=== PATIENT | female | born 1990 ===

== ENCOUNTER 2016-07-20 12:59 | Emergency (ER) | payer MEDICAID ==
[2016-07-20 12:59] VITALS: BMI 25.4
[2016-07-20 13:22] VITALS: BP 114/64; PULSE 82; RESP 18; TEMP 98; O2SAT 99
--- NOTE | 2016-07-20 14:26 | ED PDOC ---
Lower Extremity Pain/Injury Time Seen by Provider: 07/20/16 13:45 Chief Complaint (Nursing): Lower Extremity Problem/Injury Chief Complaint (Provider): R foot pain History Per: Patient Additional Complaint(s): pt c/o R foot pain since injury at gym last night. states she was stepping off stair master but didin't realize it was still going move. states stair scraped over and up R foot and ankle. no numbness, weakness distally or other injury. Past Medical History Reviewed: Historical Data, Nursing Documentation, Vital Signs Vital Signs: Last Vital Signs Temp 98.0 F 07/20/16 13:19 Pulse 82 07/20/16 13:19 Resp 18 07/20/16 13:19 BP 114/64 07/20/16 13:19 Pulse Ox 99 07/20/16 13:19 - Medical History PMH: No Chronic Diseases - Surgical History Surgical History: Appendectomy (1992) - Family History Family History: States: Unknown Family Hx - Social History Current smoker - smoking cessation education provided: No Alcohol: None Drugs: Denies - Home Medications Home Medications: Ambulatory Orders Medication Instructions Recorded Albuterol HFA [Ventolin HFA 90 2 puff IH Q4 PRN #1 unit 01/27/16 mcg/actuation (8 g)] Guaifenesin/Pseudoephedrne HCl 1 each PO BID #10 tab.er.12h 01/27/16 [Guaifenesin-Pse ER 600-60 mg] Promethazine HCl/Codeine 5 ml PO BID #50 ml 01/27/16 [Prometh-Codein 6.25-10 mg/5 ml] Amoxicillin/Clavulanate [Augmentin 1 tab PO BID #14 tab 02/06/16 875 MG-125 MG] Ciprofloxacin/Hydrocortisone 3 drop TOP BID #10 ml 02/06/16 [Cipro Hc Otic Suspension] Promethazine HCl/Codeine 10 ml PO Q6 PRN #6 oz 02/06/16 [Prometh-Codein 6.25-10 mg/5 ml] Ibuprofen [Motrin] 600 mg PO Q8 #20 tab 07/20/16 - Allergies Allergies/Adverse Reactions: Allergies Allergy/AdvReac Type Severity Reaction Status Date / Time No Known Allergies Allergy Verified 07/20/16 13:19 Review of Systems ROS Statement: Except As Marked, All Systems Reviewed And Found Negative Musculoskeletal: Positive for: Foot Pain Physical Exam - Reviewed Nursing Documentation Reviewed: Yes Vital Signs Reviewed: Yes - Physical Exam Appears: Positive for: Well, Non-toxic, No Acute Distress Skin: Positive for: Normal Color, Warm, DRY Extremity: Positive for: Other (R hatch tender dorsal midfoot and anterior ankle w/ echymosis laterally. n/v intact distally. other extremities wnl. ) Neurologic/Psych: Positive for: Alert, Oriented, Gait (steady). Negative for: Motor/Sensory Deficits - ECG O2 Sat by Pulse Oximetry: 99 Medical Decision Making Medical Decision Making: R foot/ankle xrays no fx no dislocation. will anival, refer to podiatry prn. Disposition - Clinical Impression Clinical Impression: Ankle injury - Patient ED Disposition Is Patient to be Admitted: No - Disposition Referrals: Epifanio Kim MD [Staff Provider] - Disposition: Routine/Home Disposition Time: 15:10 Condition: GOOD Prescriptions: Ibuprofen [Motrin] 600 mg PO Q8 #20 tab Instructions: Foot Contusion (ED) Forms: [facility] ED School/Work Excuse
--- NOTE | 2016-07-20 15:09 | RAD ---
PROCEDURE: Right Foot Radiographs. HISTORY: injury COMPARISON: None. FINDINGS: BONES: Bone alignment and mineralization are normal. There is no acute fracture or bone destruction. JOINTS: Normal. SOFT TISSUES: Normal. OTHER FINDINGS: None. IMPRESSION: Normal examination.
--- NOTE | 2016-07-20 16:12 | RAD ---
PROCEDURE: Right Ankle Radiographs. HISTORY: Injury COMPARISON: None FINDINGS: BONES: There is no acute fracture or bone destruction. Bone alignment and mineralization are normal. JOINTS: Normal. Ankle mortise maintained. Talar dome intact SOFT TISSUES: Normal. OTHER FINDINGS: None. IMPRESSION: No acute fracture or dislocation.
== END 2016-07-20 15:29 | disposition home or self-care (01) ==
LOC: H.ER 12:59
DX: S99.911A Unspecified injury of right ankle, initial encounter (principal); W22.8XXA Striking against or struck by other objects, initial encounter; Y92.89 Other specified places as the place of occurrence of the external cause

== ENCOUNTER 2016-08-06 10:10 | Emergency (ER) | payer MEDICAID ==
[2016-08-06 10:11] VITALS: BMI 25.4
[2016-08-06 10:38] VITALS: BP 110/76; RESP 18; TEMP 97; O2SAT 97
--- NOTE | 2016-08-06 11:00 | ED PDOC ---
HPI: Chest Pain Time Seen by Provider: 08/06/16 10:32 Chief Complaint (Nursing): Chest Pain Chief Complaint (Provider): chest tightness History Per: Patient History/Exam Limitations: no limitations Onset/Duration Of Symptoms: Hrs (earlier this morning ) Quality: Tightness Additional Complaint(s): Patient is a 25 year old female, with a previous medical history of an appendicitis, who presents to the ED with complaints of a midline chest tightness which began earlier today when she first woke up. Pt states she was not initially concerned with chest tightness until additional symptom experienced. Pt symptoms include experiencing shortness of breath and lightheadedness which prompted the ED visit. Pt reports shortness of breath has since resolved spontaneously. Pt states she currently experiences the chest tightness secondary to deep inspiration. Pt denies any calf pain, recent travel or control use. Of note, pt reports to being on depo shot but discontinued for the past year. PMD: [place], [place] Past Medical History Reviewed: Historical Data, Nursing Documentation, Vital Signs Vital Signs: Last Vital Signs Temp 97 F L 08/06/16 10:33 Pulse 77 08/06/16 12:40 Resp 18 08/06/16 10:33 BP 110/76 08/06/16 10:33 Pulse Ox 97 08/06/16 12:40 - Medical History PMH: No Chronic Diseases - Surgical History Surgical History: Appendectomy (1992) - Family History Family History: States: Diabetes, Hypertension, Other (hypercholesterolemia) - Social History Current smoker - smoking cessation education provided: No Alcohol: None Drugs: Denies - Home Medications Home Medications: Ambulatory Orders Medication Instructions Recorded Albuterol HFA [Ventolin HFA 90 2 puff IH Q4 PRN #1 unit 01/27/16 mcg/actuation (8 g)] Guaifenesin/Pseudoephedrne HCl 1 each PO BID #10 tab.er.12h 01/27/16 [Guaifenesin-Pse ER 600-60 mg] Promethazine HCl/Codeine 5 ml PO BID #50 ml 01/27/16 [Prometh-Codein 6.25-10 mg/5 ml] Amoxicillin/Clavulanate [Augmentin 1 tab PO BID #14 tab 02/06/16 875 MG-125 MG] Ciprofloxacin/Hydrocortisone 3 drop TOP BID #10 ml 02/06/16 [Cipro Hc Otic Suspension] Promethazine HCl/Codeine 10 ml PO Q6 PRN #6 oz 02/06/16 [Prometh-Codein 6.25-10 mg/5 ml] Ibuprofen [Motrin] 600 mg PO Q8 #20 tab 07/20/16 Ranitidine HCl [Zantac] 1 tab PO BID #40 tablet 08/06/16 - Allergies Allergies/Adverse Reactions: Allergies Allergy/AdvReac Type Severity Reaction Status Date / Time No Known Allergies Allergy Verified 07/20/16 13:19 Review of Systems ROS Statement: Except As Marked, All Systems Reviewed And Found Negative Cardiovascular: Positive for: Light Headedness, Other (chest tighness ) Respiratory: Positive for: Shortness of Breath (spontaneously resolved upon ED arrival ) Musculoskeletal: Negative for: Leg Pain Physical Exam - Reviewed Nursing Documentation Reviewed: Yes Vital Signs Reviewed: Yes - Physical Exam Appears: Positive for: Well, Non-toxic, No Acute Distress Head Exam: Positive for: ATRAUMATIC, NORMAL INSPECTION, NORMOCEPHALIC Skin: Positive for: Normal Color, Warm, Dry Neck: Positive for: Normal Cardiovascular/Chest: Positive for: Regular Rate, Rhythm Respiratory: Positive for: Normal Breath Sounds. Negative for: Decreased Breath Sounds, Accessory Muscle Use, Crackles, Rales, Rhonchi, Stridor, Wheezing , Respiratory Distress, Plerual Rub Pulses-Dorsalis Pedis (L): 2+ Pulses-Dorsalis Pedis (R): 2+ Back: Positive for: Normal Inspection Extremity: Positive for: Normal ROM, Capillary Refill (< 2 seconds ). Negative for: Tenderness, Pedal Edema, Calf Tenderness, Deformity, Swelling Neurologic/Psych: Positive for: Alert, Oriented - Laboratory Results Result Diagrams: 08/06/16 11:00 08/06/16 11:00 - ECG ECG Rhythm: Positive for: Sinus Rhythm. 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 PLEURA: No significant pleural effusion identified. No pneumothorax apparent. CARDIOVASCULAR: Normal. OSSEOUS STRUCTURES: No significant abnormalities. VISUALIZED UPPER ABDOMEN: Normal. OTHER FINDINGS: None. IMPRESSION: No active pulmonary disease. 12:33 PM Pt feels better. D-dimer neg. Will d/c home. Scribe Attestation: Documented by Cris Tovar, acting as a scribe for Grayson Wadsworth Jr., MD. Provider Scribe Attestation: All medical record entries made by the Scribe were at my direction and personally dictated by me. I have reviewed the chart and agree that the record accurately reflects my personal performance of the history, physical exam, medical decision making, and the department course for this patient. I have also personally directed, reviewed, and agree with the discharge instructions and disposition. Disposition - Clinical Impression Clinical Impression: Chest pain Counseled Patient/Family Regarding: Studies Performed, Diagnosis, Need For Followup, Rx Given - Disposition Referrals: FAMILY PROVIDER,DOLLY [Primary Care Provider] - [facility] [Outside] Disposition: Routine/Home Disposition Time: 12:33 Condition: IMPROVED Additional Instructions: Alcon, thank you for letting us take care of you today. Return to the ER if your symptoms worsen, or if any problems. Take the medicine listed below as prescribed. Please call our [facility] at the phone number listed below to make a follow up appointment so you can be re-evaluated. Prescriptions: Ranitidine HCl [Zantac] 1 tab PO BID #40 tablet Instructions: Chest Pain (ED) Forms: [facility] ED School/Work Excuse Print Language: CYMRAES - POA Present On Arrival: None
[2016-08-06 11:04] VITALS: PULSE 77
[2016-08-06 11:16] LABS: BASO % 0.4 % (0.0-2.0); EOS # 0.1 K/uL (0.0-0.7); EOS % 1.4 % (0.0-4.0); HEMATOCRIT 44.3 % (34.0-47.0); LYMPH # 1.6 K/uL (1.0-4.3); LYMPH % 22.8 % (20.0-40.0); MEAN CELL VOLUME 91.2 fl (81.0-99.0); MEAN CORPUSCULAR HEMOGLOBIN 31.4 pg (27.0-31.0); MEAN CORPUSCULAR HGB CONC 34.4 g/dL (33.0-37.0); MEAN PLATELET VOLUME 10.6 fl (7.2-11.7); MONO # 0.7 K/uL (0.0-0.8); MONO % 9.6 % (0.0-10.0); NEUT # 4.7 K/uL (1.8-7.0); NEUT % 65.8 % (50.0-75.0); NRBC % 0.1 % (0.0-0.0); RED CELL DISTRIBUTION WIDTH 13.5 % (11.5-14.5); WHITE BLOOD COUNT 7.1 K/uL (4.8-10.8)
[2016-08-06 11:24] LABS: ALB/GLOB RATIO 1.2 (1.0-2.1); ALKALINE PHOSPHATASE 70 U/L (38-126); ALT/SGPT 37 U/L (9-52); AST/SGOT 25 U/L (14-36); BILIRUBIN,TOTAL 0.8 mg/dl (0.2-1.3); BLOOD UREA NITROGEN 9 mg/dl (7-17); CALCIUM 8.9 mg/dL (8.4-10.2); CARBON DIOXIDE 25 mmol/L (22-30); CHLORIDE 108 mmol/L (98-107); GFR AFRICAN-AMERICAN > 60; GLUCOSE,RANDOM 89 mg/dL (65-105); POTASSIUM 3.9 MMOL/L (3.6-5.0); SODIUM 144 mmol/l (132-148); TOTAL PROTEIN 6.6 G/DL (6.3-8.2)
--- NOTE | 2016-08-06 11:43 | RAD ---
HISTORY: Chest pain and shortness of breath COMPARISON: No prior. TECHNIQUE: Chest PA and lateral FINDINGS: LUNGS: The lungs are well inflated and clear. PLEURA: No significant pleural effusion identified. No pneumothorax apparent. CARDIOVASCULAR: Normal. OSSEOUS STRUCTURES: No significant abnormalities. VISUALIZED UPPER ABDOMEN: Normal. OTHER FINDINGS: None. IMPRESSION: No active pulmonary disease.
[2016-08-06 12:01] LABS: PARTIAL THROMBOPLASTIN TIME 27.1 SECONDS (23.3-32.5)
== END 2016-08-06 12:54 | disposition home or self-care (01) ==
LOC: H.ER 10:10 → SUPCPDRO 10:10 → H.ER 12:54
DX: R07.9 Chest pain, unspecified (principal); R06.02 Shortness of breath

== ENCOUNTER 2016-09-03 12:06 | Emergency (ER) | payer MEDICAID ==
[2016-09-03 12:09] VITALS: BP 116/77; PULSE 77; RESP 18; TEMP 97.8; O2SAT 99; BMI 25.8
[2016-09-03] MEDS ORDERED: Naproxen 500 MG TAB PO ONE ×2 (12:32→12:40)
--- NOTE | 2016-09-03 12:36 | ED PDOC ---
HPI: General Adult Time Seen by Provider: 09/03/16 12:18 Chief Complaint (Nursing): ENT Problem Chief Complaint (Provider): Left ear pain History Per: Patient History/Exam Limitations: no limitations Onset/Duration Of Symptoms: Days (7 days) Current Symptoms Are (Timing): Still Present Additional Complaint(s): Alanis Rondon, a 25 year old female, presents to the ED with left ear pain. The patient states that for the past week she has had a cough, ringing in the left ear along with decreased hearing. She reports that yesterday(09/02/2016) she heard a pop in her left ear and then the ringing sound got louder then the pain increased. Patient denies dizziness, shortness of breath, chest pain, hemoptysis and fever. Past Medical History Reviewed: Historical Data, Nursing Documentation, Vital Signs Vital Signs: Last Vital Signs Temp 97.8 F 09/03/16 12:08 Pulse 77 09/03/16 12:08 Resp 18 09/03/16 12:08 BP 116/77 09/03/16 12:08 Pulse Ox 99 09/03/16 12:57 - Medical History PMH: No Chronic Diseases - Surgical History Surgical History: Appendectomy (1992) - Family History Family History: States: Unknown Family Hx, Diabetes, Hypertension - Home Medications Home Medications: Ambulatory Orders Medication Instructions Recorded Albuterol HFA [Ventolin HFA 90 2 puff IH Q4 PRN #1 unit 01/27/16 mcg/actuation (8 g)] Guaifenesin/Pseudoephedrne HCl 1 each PO BID #10 tab.er.12h 01/27/16 [Guaifenesin-Pse ER 600-60 mg] Promethazine HCl/Codeine 5 ml PO BID #50 ml 01/27/16 [Prometh-Codein 6.25-10 mg/5 ml] Amoxicillin/Clavulanate [Augmentin 1 tab PO BID #14 tab 02/06/16 875 MG-125 MG] Ciprofloxacin/Hydrocortisone 3 drop TOP BID #10 ml 02/06/16 [Cipro Hc Otic Suspension] Promethazine HCl/Codeine 10 ml PO Q6 PRN #6 oz 02/06/16 [Prometh-Codein 6.25-10 mg/5 ml] Ibuprofen [Motrin] 600 mg PO Q8 #20 tab 07/20/16 Ranitidine HCl [Zantac] 1 tab PO BID #40 tablet 08/06/16 Amoxicillin/Clavulanate [Augmentin 1 tab PO BID #20 tab 09/03/16 500 MG-125 MG] Fluticasone Propionate [Flonase] 2 spr NS DAILY PRN #1 bottle 09/03/16 Methylprednisolone [Medrol Dose 4 mg PO DAILY #21 mg 09/03/16 Pack (21 tabs)] Promethazine DM [Phenergan DM 5 - 10 ml PO Q8 PRN #120 ml 09/03/16 Syrup] - Allergies Allergies/Adverse Reactions: Allergies Allergy/AdvReac Type Severity Reaction Status Date / Time No Known Allergies Allergy Verified 09/03/16 12:11 Review of Systems Constitutional: Negative for: Fever ENT: Positive for: Ear Pain (Left ear pain and ringing in the ear) Cardiovascular: Negative for: Chest Pain Respiratory: Positive for: Cough. Negative for: Shortness of Breath, Hemoptysis Neurological: Negative for: Dizziness Physical Exam - Reviewed Nursing Documentation Reviewed: Yes Vital Signs Reviewed: Yes - Physical Exam Appears: Positive for: Non-toxic, No Acute Distress Head Exam: Positive for: ATRAUMATIC, NORMOCEPHALIC Skin: Positive for: Normal Color, Warm, Dry Eye Exam: Positive for: Normal appearance, EOMI, PERRL ENT: Positive for: TM Is/Are (left tympanic membrane erythematous and bulging; bilateral ear canals within normal limits.). Negative for: Pharyngeal Erythema , Tonsillar Exudate Neck: Positive for: Normal, Painless ROM, Supple Cardiovascular/Chest: Positive for: Regular Rate, Rhythm. Negative for: Chest Non Tender, Tachycardia Respiratory: Positive for: Normal Breath Sounds. Negative for: Wheezing Neurologic/Psych: Positive for: Alert, Oriented - ECG O2 Sat by Pulse Oximetry: 99 (RA) Pulse Ox Interpretation: Normal Medical Decision Making Medical Decision Makin:18 Initial Impression: 25 year old female presents to the Ed with a cough and left ear pain Initial Plan: * Naproxen 500mg PO * reevaluation Patient was informed of the risk of permanent hearing loss due to tinnitus and instructed to follow up with an ear doctor. All questions answered and there is agreement with the plan to discharge home. Patient is stable for discharge. Dx: Ear infection Rx: Naproxen Condition: Stable Scribe Attestation: Documented by Nery Barrientos, acting as a scribe for Shreyas Olivares PA-C., MD Scribe Attestation: All medical record entries made by the Scribe were at my direction and personally dictated by me. I have reviewed the chart and agree that the record accurately reflects my personal performance of the history, physical exam, medical decision making, and the department course for this patient. I have also personally directed, reviewed, and agree with the discharge instructions and disposition. Disposition - Clinical Impression Clinical Impression: Otitis media, Tinnitus, Acute bronchitis, Left ear pain Counseled Patient/Family Regarding: Studies Performed, Diagnosis, Need For Followup, Rx Given - Disposition Referrals: [facility] [Outside] Clemente Akhtar MD [Staff Provider] - Disposition: Routine/Home Disposition Time: 12:19 Condition: STABLE Additional Instructions: FOLLOW UP WITH DR. AKHTAR, ENT, YESSICA WITHOUT FAIL. Prescriptions: Amoxicillin/Clavulanate [Augmentin 500 MG-125 MG] 1 tab PO BID #20 tab Fluticasone Propionate [Flonase] 2 spr NS DAILY PRN #1 bottle PRN Reason: Allergy Symptoms Methylprednisolone [Medrol Dose Pack (21 tabs)] 4 mg PO DAILY #21 mg Promethazine DM [Phenergan DM Syrup] 5 - 10 ml PO Q8 PRN #120 ml PRN Reason: Cough Instructions: Otitis Media (ED), Acute Bronchitis (ED), Tinnitus (ED) Print Language: SURINAMESE
== END 2016-09-03 12:50 | disposition home or self-care (01) ==
LOC: H.ER 12:06
DX: H66.90 Otitis media, unspecified, unspecified ear (principal); J20.9 Acute bronchitis, unspecified

== ENCOUNTER 2017-01-11 12:26 | Emergency (ER) | payer MEDICAID ==
[2017-01-11 12:27] VITALS: BMI 25.8
[2017-01-11 12:35] VITALS: BP 136/93; PULSE 60; RESP 18; TEMP 97.5; O2SAT 99
[2017-01-11] MEDS ORDERED: Sodium Chloride 0.9% 1,000 ML IV STA (12:44)
--- NOTE | 2017-01-11 12:49 | ED PDOC ---
HPI: Abdomen Time Seen by Provider: 01/11/17 12:40 Chief Complaint (Nursing): Abdominal Pain Chief Complaint (Provider): Abdominal pain History Per: Patient Additional Complaint(s): 26 yo female, no PMH, presents to ED with complaints of having severe right flank pain radiating to RLQ x 3 hours now. Patient vomited 1x. No fever or chills. No medications taken to alleviate symptoms thus far. Past Medical History Reviewed: Nursing Documentation, Vital Signs Vital Signs: Last Vital Signs Temp 97.5 F L 01/11/17 12:33 Pulse 60 01/11/17 12:33 Resp 18 01/11/17 12:33 BP 136/93 H 01/11/17 12:33 Pulse Ox 99 01/11/17 12:49 - Medical History PMH: No Chronic Diseases - Surgical History Surgical History: Appendectomy (1992) - Family History Family History: States: Unknown Family Hx, Diabetes, Hypertension - Living Arrangements Living Arrangements: With Family - Social History Current smoker - smoking cessation education provided: No Alcohol: None Drugs: Denies - Home Medications Home Medications: Ambulatory Orders Medication Instructions Recorded Albuterol HFA [Ventolin HFA 90 2 puff IH Q4 PRN #1 unit 01/27/16 mcg/actuation (8 g)] Guaifenesin/Pseudoephedrne HCl 1 each PO BID #10 tab.er.12h 01/27/16 [Guaifenesin-Pse ER 600-60 mg] Promethazine HCl/Codeine 5 ml PO BID #50 ml 01/27/16 [Prometh-Codein 6.25-10 mg/5 ml] Amoxicillin/Clavulanate [Augmentin 1 tab PO BID #14 tab 02/06/16 875 MG-125 MG] Ciprofloxacin/Hydrocortisone 3 drop TOP BID #10 ml 02/06/16 [Cipro Hc Otic Suspension] Promethazine HCl/Codeine 10 ml PO Q6 PRN #6 oz 02/06/16 [Prometh-Codein 6.25-10 mg/5 ml] Ibuprofen [Motrin] 600 mg PO Q8 #20 tab 07/20/16 Ranitidine HCl [Zantac] 1 tab PO BID #40 tablet 08/06/16 Amoxicillin/Clavulanate [Augmentin 1 tab PO BID #20 tab 05/20/17 500 MG-125 MG] Fluticasone Propionate [Flonase] 2 spr NS DAILY PRN #1 bottle 09/03/16 Methylprednisolone [Medrol Dose 4 mg PO DAILY #21 mg 09/03/16 Pack (21 tabs)] Promethazine DM [Phenergan DM 5 - 10 ml PO Q8 PRN #120 ml 09/03/16 Syrup] - Allergies Allergies/Adverse Reactions: Allergies Allergy/AdvReac Type Severity Reaction Status Date / Time No Known Allergies Allergy Verified 09/03/16 12:11 Review of Systems ROS Statement: Except As Marked, All Systems Reviewed And Found Negative Gastrointestinal: Positive for: Nausea, Vomiting, Abdominal Pain Physical Exam - Reviewed Nursing Documentation Reviewed: Yes Vital Signs Reviewed: Yes - Physical Exam Appears: Positive for: Non-toxic, No Acute Distress, Uncomfortable Head Exam: Positive for: ATRAUMATIC, NORMAL INSPECTION, NORMOCEPHALIC Skin: Positive for: Normal Color, Warm, DRY Eye Exam: Positive for: EOMI, Normal appearance, PERRL ENT: Positive for: Normal ENT Inspection Neck: Positive for: Normal, Painless ROM Cardiovascular/Chest: Positive for: Regular Rate, Rhythm Respiratory: Positive for: CNT, Normal Breath Sounds Gastrointestinal/Abdominal: Positive for: Bowel Sounds, Soft, Tenderness (R flank) Back: Positive for: Normal Inspection, R CVA Tenderness Extremity: Positive for: Normal ROM Neurologic/Psych: Positive for: Alert, Oriented - Laboratory Results Result Diagrams: 01/11/17 13:00 01/11/17 13:25 - ECG O2 Sat by Pulse Oximetry: 99 Medical Decision Making Medical Decision Making: IV access established and treatment initiated with IVF, Toradol, Morphine and Zofran Labs resulted and reviewed with pt who demonstrated full understanding. Pt reports pain improved on re-eval. IV Rocephin started for UTI noted on UA. CT IMPRESSION: Obstructing 3 mm proximal right ureteral calculus with mild right hydroureter. No renal calculus. Mild hepatomegaly with fatty infiltration of the liver. Additional minor findings as above. pt reports pain returning on second re-eval. 2 mg Morphine administered, good relief obtained Disposition - Clinical Impression Clinical Impression: UTI (urinary tract infection), Kidney stone - Patient ED Disposition Is Patient to be Admitted: No - Disposition Disposition: Routine/Home Disposition Time: 17:16 Condition: STABLE Forms: [facility] ([place]) - POA Present On Arrival: None
[2017-01-11 13:25] LABS: BASO # 0.1 K/uL (0.0-0.2); BASO % 0.7 % (0.0-2.0); EOS # 0.1 K/uL (0.0-0.7); EOS % 0.6 % (0.0-4.0); HEMATOCRIT 47.8 % (34.0-47.0); LYMPH % 28.7 % (20.0-40.0); MEAN CELL VOLUME 92.1 fl (81.0-99.0); MEAN CORPUSCULAR HEMOGLOBIN 30.6 pg (27.0-31.0); MEAN CORPUSCULAR HGB CONC 33.2 g/dL (33.0-37.0); MEAN PLATELET VOLUME 10.1 fl (7.2-11.7); MONO # 0.8 K/uL (0.0-0.8); NEUT # 6.6 K/uL (1.8-7.0); NRBC % 0.2 % (0.0-0.0); RED CELL DISTRIBUTION WIDTH 13.5 % (11.5-14.5); WHITE BLOOD COUNT 10.6 K/uL (4.8-10.8)
[2017-01-11 13:49] LABS: ALB/GLOB RATIO 1.4 (1.0-2.1); ALKALINE PHOSPHATASE 64 U/L (38-126); ALT/SGPT 37 U/L (9-52); AST/SGOT 19 U/L (14-36); BILIRUBIN,TOTAL 0.5 mg/dl (0.2-1.3); BLOOD UREA NITROGEN 9 mg/dl (7-17); CALCIUM 8.3 mg/dL (8.4-10.2); CARBON DIOXIDE 23 mmol/L (22-30); CHLORIDE 108 mmol/L (98-107); GFR AFRICAN-AMERICAN > 60; GLUCOSE,RANDOM 124 mg/dL (65-105); SODIUM 145 mmol/l (132-148); TOTAL PROTEIN 6.5 G/DL (6.3-8.2)
[2017-01-11 13:53] LABS: POTASSIUM 3.5 MMOL/L (3.6-5.0)
--- NOTE | 2017-01-11 15:10 | CT ---
PROCEDURE: CT Abdomen and Pelvis without intravenous contrast HISTORY: r/o renal stone COMPARISON: None. TECHNIQUE: Without contrast.. Contrast Dose: 0 Radiation dose: Total exam DLP = 693.89 mGy-cm. This CT exam was performed using one or more of the following dose reduction techniques: Automated exposure control, adjustment of the mA and/or kV according to patient size, and/or use of iterative reconstruction technique. FINDINGS: LOWER THORAX: Unremarkable. LIVER: Mild hepatomegaly. The liver measures 19 cm craniocaudal. Diffusely diminished attenuation consistent with fatty infiltration. Smooth contour. No mass. No biliary dilatation. GALLBLADDER AND BILE DUCTS: Unremarkable. PANCREAS: Unremarkable. No gross lesion or ductal dilatation. SPLEEN: Unremarkable. ADRENALS: Unremarkable. No mass. KIDNEYS AND URETERS: Mild right hydronephrosis and proximal hydroureter. Obstructing 3 mm calculus in the right ureter approximately 7 cm distal to the ureteropelvic junction. Mild proximal right periureteric stranding. No perinephric fluid. No renal calculus. No left hydronephrosis. No renal mass. VASCULATURE: Unremarkable. No aortic aneurysm. BOWEL: Diverticulosis of the transverse and proximal descending colon. No evidence of diverticulitis. No bowel obstruction. APPENDIX: Not identified. No secondary findings to suggest acute appendicitis, however. PERITONEUM: Unremarkable. No free fluid. No free air. LYMPH NODES: Unremarkable. No enlarged lymph nodes. BLADDER: Nondistended REPRODUCTIVE: Unremarkable uterus BONES: No acute fracture. OTHER FINDINGS: None. IMPRESSION: Obstructing 3 mm proximal right ureteral calculus with mild right hydroureter. No renal calculus. Mild hepatomegaly with fatty infiltration of the liver. Additional minor findings as above.
[2017-01-11 16:54] LABS: RBC URINE 6340 /hpf (0-3); URINE BACTERIA OCC (<OCC); URINE BILIRUBIN NEGATIVE (NEGATIVE); URINE BLOOD LARGE (NEGATIVE); URINE COLOR YELLOW (YELLOW); URINE GLUCOSE (UA) NEG (Normal); URINE KETONE NEGATIVE (NEGATIVE); URINE LEUKOCYTE ESTERASE NEG Leu/uL (Negative); URINE PROTEIN 100 mg/dL (NEGATIVE); URINE UROBILINOGEN 0.2-1.0 mg/dL (0.2-1.0); WBC URINE 324 /hpf (0-5)
[2017-01-11] MEDS ORDERED: cefTRIAXone (Rocephin) 1 gm Inj ONE (17:14)
== END 2017-01-11 18:39 | disposition home or self-care (01) ==
LOC: H.ER 12:26
DX: N20.1 Calculus of ureter (principal); N39.0 Urinary tract infection, site not specified; K76.0 Fatty (change of) liver, not elsewhere classified
CPT/HCPCS: 74176; 80053; 81003; 81025; 85025; 96361; 96374; 96375; 99282; J0696; J1885; J2270; J2405; J7040

== ENCOUNTER 2017-03-14 08:05 | Emergency (ER) | payer MEDICAID ==
[2017-03-14 08:10] VITALS: TEMP 97; O2SAT 99
[2017-03-14 08:11] VITALS: BMI 25.0
[2017-03-14] MEDS ORDERED: Albuterol 0.083% Inhal Sol (2.5 mg/3 mL) UD INH ONE (08:52)
--- NOTE | 2017-03-14 10:28 | RAD ---
HISTORY: cough COMPARISON: Chest x-ray performed 08/06/16 TECHNIQUE: Chest PA and lateral FINDINGS: LUNGS: No focal consolidation. Please note that chest x-ray has limited sensitivity for the detection of pulmonary masses. PLEURA: No significant pleural effusion identified. No definite pneumothorax . CARDIOVASCULAR: The cardiomediastinal silhouette appears within normal limits of size. OSSEOUS STRUCTURES: No acute osseous abnormality identified. VISUALIZED UPPER ABDOMEN: Unremarkable. OTHER FINDINGS: None. IMPRESSION: No focal consolidation, significant pleural effusion, or definite pneumothorax identified.
--- NOTE | 2017-03-14 12:11 | ED PDOC ---
HPI: Chest Pain Time Seen by Provider: 03/14/17 08:33 Chief Complaint (Nursing): Chest Pain Chief Complaint (Provider): Chest pain History Per: Patient History/Exam Limitations: no limitations Onset/Duration Of Symptoms: Days (x6) Current Symptoms Are (Timing): Still Present Exacerbating Factors: Other (cough) Additional Complaint(s): Alanis Rondon is a 26 year old female, with a past medical history of anxiety , who presents to the emergency department complaining of coughing, chest pain, fever and x2 episodes of vomiting onset for 6 days. Patient states tiny drops of blood came out when she coughs. She also reports chest pain when she coughs. Patient vomited once last night and once this morning. No further medical complaints. PMD: None provided. Past Medical History Reviewed: Historical Data, Nursing Documentation, Vital Signs Vital Signs: Last Vital Signs Temp 97 F L 03/14/17 08:09 Pulse 78 03/14/17 08:09 Resp BP 98/62 L 03/14/17 08:09 Pulse Ox 99 03/14/17 12:14 - Surgical History Surgical History: Appendectomy (1992) - Family History Family History: States: Unknown Family Hx, Diabetes, Hypertension - Social History Current smoker - smoking cessation education provided: No Alcohol: Social Drugs: Denies - Home Medications Home Medications: Ambulatory Orders Medication Instructions Recorded Albuterol HFA [Ventolin HFA 90 2 puff IH Q4 PRN #1 unit 01/27/16 mcg/actuation (8 g)] Guaifenesin/Pseudoephedrne HCl 1 each PO BID #10 tab.er.12h 01/27/16 [Guaifenesin-Pse ER 600-60 mg] Promethazine HCl/Codeine 5 ml PO BID #50 ml 01/27/16 [Prometh-Codein 6.25-10 mg/5 ml] Amoxicillin/Clavulanate [Augmentin 1 tab PO BID #14 tab 02/06/16 875 MG-125 MG] Ciprofloxacin/Hydrocortisone 3 drop TOP BID #10 ml 02/06/16 [Cipro Hc Otic Suspension] Promethazine HCl/Codeine 10 ml PO Q6 PRN #6 oz 02/06/16 [Prometh-Codein 6.25-10 mg/5 ml] Ibuprofen [Motrin] 600 mg PO Q8 #20 tab 07/20/16 Ranitidine HCl [Zantac] 1 tab PO BID #40 tablet 08/06/16 Amoxicillin/Clavulanate [Augmentin 1 tab PO BID #20 tab 09/03/16 500 MG-125 MG] Fluticasone Propionate [Flonase] 2 spr NS DAILY PRN #1 bottle 09/03/16 Methylprednisolone [Medrol Dose 4 mg PO DAILY #21 mg 09/03/16 Pack (21 tabs)] Promethazine DM [Phenergan DM 5 - 10 ml PO Q8 PRN #120 ml 09/03/16 Syrup] Cephalexin [cephalexin] 500 mg PO BID #20 cap 01/11/17 traMADol [Ultram] 50 mg PO Q4 #15 tab 01/11/17 Oseltamivir [Tamiflu] 75 mg PO BID #10 cap 03/14/17 - Allergies Allergies/Adverse Reactions: Allergies Allergy/AdvReac Type Severity Reaction Status Date / Time No Known Allergies Allergy Verified 09/03/16 12:11 Review of Systems ROS Statement: Except As Marked, All Systems Reviewed And Found Negative Constitutional: Positive for: Fever Cardiovascular: Positive for: Chest Pain (when coughing) Respiratory: Positive for: Cough (w/ tiny drops of blood) Gastrointestinal: Positive for: Vomiting (x2) Physical Exam - Reviewed Nursing Documentation Reviewed: Yes Vital Signs Reviewed: Yes - Physical Exam Appears: Positive for: Well, Non-toxic, No Acute Distress Head Exam: Positive for: ATRAUMATIC, NORMAL INSPECTION, NORMOCEPHALIC Skin: Positive for: Normal Color, Warm, Dry Eye Exam: Positive for: EOMI, Normal appearance, PERRL ENT: Positive for: Normal ENT Inspection Neck: Positive for: Normal, Painless ROM, Supple Cardiovascular/Chest: Positive for: Regular Rate, Rhythm. Negative for: Murmur Respiratory: Positive for: Normal Breath Sounds. Negative for: Respiratory Distress Gastrointestinal/Abdominal: Positive for: Normal Exam, Bowel Sounds, Soft. Negative for: Tenderness, Guarding, Rebound Back: Positive for: Normal Inspection. Negative for: L CVA Tenderness Extremity: Positive for: Normal ROM. Negative for: Deformity, Swelling Neurologic/Psych: Positive for: Alert, Oriented - ECG O2 Sat by Pulse Oximetry: 99 (RA) Medical Decision Making Medical Decision Making: Initial Impression: Chest pain, cough Initial Plan: --Chest two views (PA/LAT) [RAD] --Albuterol 2.5 mg INH --Toradol 60 mg IM --Peak flow pre/post Tx --reevaluation 1026 Chest x-ray FINDINGS: LUNGS: No focal consolidation. Please note that chest x-ray has limited sensitivity for the detection of pulmonary masses. PLEURA: No significant pleural effusion identified. No definite pneumothorax . CARDIOVASCULAR: The cardiomediastinal silhouette appears within normal limits of size. OSSEOUS STRUCTURES: No acute osseous abnormality identified. VISUALIZED UPPER ABDOMEN: Unremarkable. OTHER FINDINGS: None. IMPRESSION: No focal consolidation, significant pleural effusion, or definite pneumothorax identified. Scribe Attestation: Documented by Minh Johnson, acting as a scribe for Shruti Valencia MD Provider Scribe Attestation: All medical record entries made by the Scribe were at my direction and personally dictated by me. I have reviewed the chart and agree that the record accurately reflects my personal performance of the history, physical exam, medical decision making, and the department course for this patient. I have also personally directed, reviewed, and agree with the discharge instructions and disposition. Disposition - Clinical Impression Clinical Impression: Influenza - Disposition Referrals: [facility] [Outside] [facility] [Outside] Condition: IMPROVED Additional Instructions: follow up with your primary doctor in 1-2 days return to the ED with any worsening or concerning symptoms Prescriptions: Oseltamivir [Tamiflu] 75 mg PO BID #10 cap Instructions: Influenza (ED) Forms: [employer] ([place])
[2017-03-14 12:56] VITALS: BP 105/68; PULSE 76
== END 2017-03-14 12:26 | disposition home or self-care (01) ==
LOC: H.ER 08:05
DX: J10.1 Influenza due to other identified influenza virus with other respiratory manifestations (principal); F41.9 Anxiety disorder, unspecified
CPT/HCPCS: 71020; 81025; 87804; 94640; 96372; 99282; J1885

== ENCOUNTER 2017-05-11 22:26 | Emergency (ER) | payer MEDICAID ==
[2017-05-11 22:26] VITALS: BMI 25.0
[2017-05-11 22:35] VITALS: BP 121/68; PULSE 81; RESP 18; TEMP 97.8; O2SAT 98
--- NOTE | 2017-05-11 22:50 | ED PDOC ---
HPI: Female Pain Time Seen by Provider: 05/11/17 22:48 Chief Complaint (Nursing): Female Genitourinary Chief Complaint (Provider): vaginal bleeding History Per: Patient (26 y/o female here with vaginal spotting noted today brownish one episode. Notes mild suprapubic crampy discomfort intermittently. Denies any vomiting/diarrhea/fevers/ chills. Seen by deputy clerk of superior court with [facility] noted today. No prior ectopic/miscarriage.) Past Medical History Reviewed: Historical Data, Nursing Documentation, Vital Signs Vital Signs: Last Vital Signs Temp 97.8 F 05/11/17 22:32 Pulse 81 05/11/17 22:32 Resp 18 05/11/17 22:32 BP 121/68 05/11/17 22:32 Pulse Ox 98 05/11/17 22:32 - Surgical History Surgical History: Appendectomy (1992) - Family History Family History: States: Unknown Family Hx, Diabetes, Hypertension - Home Medications Home Medications: Ambulatory Orders Medication Instructions Recorded Albuterol HFA [Ventolin HFA 90 2 puff IH Q4 PRN #1 unit 01/27/16 mcg/actuation (8 g)] Guaifenesin/Pseudoephedrne HCl 1 each PO BID #10 tab.er.12h 01/27/16 [Guaifenesin-Pse ER 600-60 mg] Promethazine HCl/Codeine 5 ml PO BID #50 ml 01/27/16 [Prometh-Codein 6.25-10 mg/5 ml] Amoxicillin/Clavulanate [Augmentin 1 tab PO BID #14 tab 02/06/16 875 MG-125 MG] Ciprofloxacin/Hydrocortisone 3 drop TOP BID #10 ml 02/06/16 [Cipro Hc Otic Suspension] Promethazine HCl/Codeine 10 ml PO Q6 PRN #6 oz 02/06/16 [Prometh-Codein 6.25-10 mg/5 ml] Ibuprofen [Motrin] 600 mg PO Q8 #20 tab 07/20/16 Ranitidine HCl [Zantac] 1 tab PO BID #40 tablet 08/06/16 Amoxicillin/Clavulanate [Augmentin 1 tab PO BID #20 tab 09/03/16 500 MG-125 MG] Fluticasone Propionate [Flonase] 2 spr NS DAILY PRN #1 bottle 09/03/16 Methylprednisolone [Medrol Dose 4 mg PO DAILY #21 mg 09/03/16 Pack (21 tabs)] Promethazine DM [Phenergan DM 5 - 10 ml PO Q8 PRN #120 ml 09/03/16 Syrup] Cephalexin [cephalexin] 500 mg PO BID #20 cap 01/11/17 traMADol [Ultram] 50 mg PO Q4 #15 tab 01/11/17 Oseltamivir [Tamiflu] 75 mg PO BID #10 cap 03/14/17 - Allergies Allergies/Adverse Reactions: Allergies Allergy/AdvReac Type Severity Reaction Status Date / Time No Known Allergies Allergy Verified 09/03/16 12:11 Review of Systems ROS Statement: Except As Marked, All Systems Reviewed And Found Negative Physical Exam - Reviewed Nursing Documentation Reviewed: Yes Vital Signs Reviewed: Yes - Physical Exam Appears: Positive for: Well, Non-toxic, No Acute Distress Head Exam: Positive for: ATRAUMATIC, NORMAL INSPECTION, NORMOCEPHALIC Skin: Positive for: Normal Color, Warm, DRY Eye Exam: Positive for: EOMI, Normal appearance, PERRL ENT: Positive for: Normal ENT Inspection Neck: Positive for: Normal, Painless ROM Cardiovascular/Chest: Positive for: Regular Rate, Rhythm Respiratory: Positive for: CNT, Normal Breath Sounds Gastrointestinal/Abdominal: Positive for: Normal Exam, Bowel Sounds, Soft Back: Positive for: Normal Inspection Extremity: Positive for: Normal ROM Neurologic/Psych: Positive for: Alert, Oriented - Laboratory Results Result Diagrams: 05/11/17 23:03 05/11/17 23:03 - ECG O2 Sat by Pulse Oximetry: 98 - Progress ED Course And Treament: FINDINGS: Gestation: There is a single living intrauterine gestation. There is a heart rate of 150 beats per minute.[place] rump length measures approximate 10.4 mm.Gestational sac has mean diameter 11.7 mm. There is a small yolk sac, internal diameter approximately 2 mm. Uterus: Uterus measures approximately 8.7 x 4.4 x 5.5 cm.. Cervix measures approximately 4 cm in length. Cervix is closed. Ovaries: Left ovary measures approximately 3 x 1.5 x 2.3 cm. Right ovary measures approximately 2.4 x 1.8 x 2.5 cm.There are multiple small follicles. There is flow in both ovaries on Doppler imaging. Free fluid: There is no free fluid. IMPRESSION: 6 week 2 day single living intrauterine gestation, estimated date of delivery 01/02/18 Thank you for allowing us to participate in the care of your patient. Dictated and Authenticated by: Jennifer Chan MD Disposition - Clinical Impression Clinical Impression: Threatened miscarriage - Disposition Condition: FAIR Instructions: Threatened Miscarriage (ED) Forms: [facility] ([place]), [facility] ED School/Work Excuse
[2017-05-11 23:09] LABS: BASO # 0.1 K/uL (0.0-0.2); BASO % 0.9 % (0.0-2.0); EOS # 0.1 K/uL (0.0-0.7); EOS % 1.2 % (0.0-4.0); HEMOGLOBIN 15.1 g/dL (12.0-16.0); LYMPH % 25.9 % (20.0-40.0); MEAN CELL VOLUME 92.5 fl (81.0-99.0); MEAN CORPUSCULAR HEMOGLOBIN 31.1 pg (27.0-31.0); MEAN CORPUSCULAR HGB CONC 33.6 g/dL (33.0-37.0); MEAN PLATELET VOLUME 10.1 fl (7.2-11.7); MONO % 8.4 % (0.0-10.0); NEUT # 7.3 K/uL (1.8-7.0); NEUT % 63.6 % (50.0-75.0); NRBC % 0.1 % (0.0-0.0); RBC 4.84 Mil/uL (3.80-5.20); RED CELL DISTRIBUTION WIDTH 14.1 % (11.5-14.5); WHITE BLOOD COUNT 11.5 K/uL (4.8-10.8)
[2017-05-11 23:21] LABS: BLOOD UREA NITROGEN 11 mg/dl (7-17); CALCIUM 9.3 mg/dL (8.4-10.2); GFR AFRICAN-AMERICAN > 60; GFR NON-AFRICAN AMERICAN > 60
--- NOTE | 2017-05-12 00:38 | US ---
EXAM: US , Transvaginal EXAM DATE/TIME: 05/11/2017 10:40 PM CLINICAL HISTORY: 26 years old, female; Signs and symptoms; Lmp or gestational age (in weeks): 03/14/17; Antepartum complications and other: Spotting; ; Additional info: R/O ectopic TECHNIQUE: Real-time transvaginal obstetrical ultrasound of the maternal pelvis and a first trimester with image documentation. Transvaginal imaging was used for better evaluation of the fetus and adnexa. COMPARISON: There are no prior studies for comparison. FINDINGS: Gestation: There is a single living intrauterine gestation. There is a heart rate of 150 beats per minute.[place] rump length measures approximate 10.4 mm.Gestational sac has mean diameter 11.7 mm. There is a small yolk sac, internal diameter approximately 2 mm. Uterus: Uterus measures approximately 8.7 x 4.4 x 5.5 cm.. Cervix measures approximately 4 cm in length. Cervix is closed. Ovaries: Left ovary measures approximately 3 x 1.5 x 2.3 cm. Right ovary measures approximately 2.4 x 1.8 x 2.5 cm.There are multiple small follicles. There is flow in both ovaries on Doppler imaging. Free fluid: There is no free fluid. IMPRESSION: 6 week 2 day single living intrauterine gestation, estimated date of delivery 01/02/18
== END 2017-05-12 01:30 | disposition home or self-care (01) ==
LOC: H.ER 22:26
DX: O20.0 Threatened abortion (principal); Z3A.11 11 weeks gestation of pregnancy

== ENCOUNTER 2017-05-16 20:26 | Emergency (ER) | payer MEDICAID ==
[2017-05-16 20:26] VITALS: BMI 25.0
[2017-05-16 21:06] VITALS: BP 133/77; PULSE 74; RESP 16; TEMP 98.4; O2SAT 100
--- NOTE | 2017-05-16 22:46 | ED PDOC ---
HPI: Female Pain Time Seen by Provider: 05/16/17 22:31 Chief Complaint (Nursing): Female Genitourinary Chief Complaint (Provider): Vaginal bleeding History Per: Patient History/Exam Limitations: no limitations Onset/Duration Of Symptoms: Days (3) Additional Complaint(s): Pt @ 7 weeks presents with increasing vaginal bleeding X 5 days, associated with crampy lower abdominal pain, using 2 pads per day. Denies nausea, vomiting, dysuria, hematuria. Past Medical History Reviewed: Nursing Documentation, Vital Signs Vital Signs: Last Vital Signs Temp 98.4 F 05/16/17 21:03 Pulse 74 05/16/17 21:03 Resp 16 05/16/17 21:03 BP 133/77 05/16/17 21:03 Pulse Ox 100 05/16/17 21:03 - Medical History PMH: No Chronic Diseases - Surgical History Surgical History: Appendectomy (1992) - Family History Family History: States: Unknown Family Hx, Diabetes, Hypertension - Home Medications Home Medications: Ambulatory Orders Medication Instructions Recorded Albuterol HFA [Ventolin HFA 90 2 puff IH Q4 PRN #1 unit 01/27/16 mcg/actuation (8 g)] Guaifenesin/Pseudoephedrne HCl 1 each PO BID #10 tab.er.12h 01/27/16 [Guaifenesin-Pse ER 600-60 mg] Promethazine HCl/Codeine 5 ml PO BID #50 ml 01/27/16 [Prometh-Codein 6.25-10 mg/5 ml] Amoxicillin/Clavulanate [Augmentin 1 tab PO BID #14 tab 02/06/16 875 MG-125 MG] Ciprofloxacin/Hydrocortisone 3 drop TOP BID #10 ml 02/06/16 [Cipro Hc Otic Suspension] Promethazine HCl/Codeine 10 ml PO Q6 PRN #6 oz 02/06/16 [Prometh-Codein 6.25-10 mg/5 ml] Ibuprofen [Motrin] 600 mg PO Q8 #20 tab 07/20/16 Ranitidine HCl [Zantac] 1 tab PO BID #40 tablet 08/06/16 Amoxicillin/Clavulanate [Augmentin 1 tab PO BID #20 tab 09/03/16 500 MG-125 MG] Fluticasone Propionate [Flonase] 2 spr NS DAILY PRN #1 bottle 09/03/16 Methylprednisolone [Medrol Dose 4 mg PO DAILY #21 mg 09/03/16 Pack (21 tabs)] Promethazine DM [Phenergan DM 5 - 10 ml PO Q8 PRN #120 ml 09/03/16 Syrup] Cephalexin [cephalexin] 500 mg PO BID #20 cap 01/11/17 traMADol [Ultram] 50 mg PO Q4 #15 tab 01/11/17 Oseltamivir [Tamiflu] 75 mg PO BID #10 cap 03/14/17 - Allergies Allergies/Adverse Reactions: Allergies Allergy/AdvReac Type Severity Reaction Status Date / Time No Known Allergies Allergy Verified 05/16/17 21:03 Review of Systems Constitutional: Negative for: Fever, Chills Cardiovascular: Negative for: Chest Pain Respiratory: Negative for: Cough, Shortness of Breath Gastrointestinal: Positive for: Abdominal Pain. Negative for: Nausea, Vomiting , Diarrhea Genitourinary Female: Positive for: Vaginal Bleeding, Pelvic Pain. Negative for : Dysuria, Hematuria, Vaginal Discharge Musculoskeletal: Negative for: Back Pain Skin: Negative for: Rash, Lesions Neurological: Negative for: Headache, Dizziness Physical Exam - Reviewed Nursing Documentation Reviewed: Yes Vital Signs Reviewed: Yes - Physical Exam Appears: Positive for: Well, No Acute Distress Head Exam: Positive for: ATRAUMATIC, NORMAL INSPECTION Skin: Positive for: Normal Color, Warm, Dry Eye Exam: Positive for: Normal appearance, EOMI, PERRL Cardiovascular/Chest: Positive for: Regular Rate, Rhythm Respiratory: Positive for: Normal Breath Sounds Gastrointestinal/Abdominal: Positive for: Bowel Sounds, Soft, Tenderness (Mild suprapubic). Negative for: Guarding, Rebound Back: Positive for: Normal Inspection Extremity: Positive for: Normal ROM Neurologic/Psych: Positive for: Alert, Oriented - ECG O2 Sat by Pulse Oximetry: 100 Medical Decision Making Medical Decision Making: Pt @ 7 weeks gestation with increasing vaginal bleeding and lower abdominal pain. - labs - pelvic ultrasound Upon review of old records, blood type O+. Disposition - Disposition Forms: [employer] (Czech)
[2017-05-16 23:14] LABS: BASO # 0.1 K/uL (0.0-0.2); BASO % 1.4 % (0.0-2.0); EOS # 0.2 K/uL (0.0-0.7); EOS % 1.7 % (0.0-4.0); HEMOGLOBIN 14.7 g/dL (12.0-16.0); LYMPH # 2.4 K/uL (1.0-4.3); LYMPH % 21.8 % (20.0-40.0); MEAN CELL VOLUME 93.5 fl (81.0-99.0); MEAN CORPUSCULAR HEMOGLOBIN 30.6 pg (27.0-31.0); MEAN CORPUSCULAR HGB CONC 32.7 g/dL (33.0-37.0); MEAN PLATELET VOLUME 9.8 fl (7.2-11.7); MONO # 0.9 K/uL (0.0-0.8); MONO % 8.7 % (0.0-10.0); NEUT # 7.2 K/uL (1.8-7.0); NEUT % 66.4 % (50.0-75.0); RBC 4.82 Mil/uL (3.80-5.20); RED CELL DISTRIBUTION WIDTH 13.9 % (11.5-14.5); WHITE BLOOD COUNT 10.8 K/uL (4.8-10.8)
[2017-05-16 23:23] LABS: ALB/GLOB RATIO 1.4 (1.0-2.1); ALBUMIN 3.9 g/dL (3.5-5.0); ALT/SGPT 41 U/L (9-52); AST/SGOT 20 U/L (14-36); BLOOD UREA NITROGEN 10 mg/dl (7-17); CALCIUM 9.4 mg/dL (8.4-10.2); GFR AFRICAN-AMERICAN > 60; GFR NON-AFRICAN AMERICAN > 60; SQUAMOUS EPITHIAL 1 /hpf (0-5); URINE BACTERIA RARE (<OCC); URINE BILIRUBIN NEGATIVE (NEGATIVE); URINE BLOOD MODERATE (NEGATIVE); URINE CLARITY CLOUDY (Clear); URINE COLOR YELLOW (YELLOW); URINE GLUCOSE (UA) NEG (Normal); URINE LEUKOCYTE ESTERASE NEG Leu/uL (Negative); URINE NITRATE NEGATIVE (NEGATIVE); URINE PROTEIN NEGATIVE (NEGATIVE); URINE UROBILINOGEN 0.2-1.0 mg/dL (0.2-1.0)
[2017-05-16 23:28] LABS: INR 1.2 (0.9-1.2); PARTIAL THROMBOPLASTIN TIME 30.9 Seconds (25.6-37.1); PROTHROMBIN TIME 13.3 Seconds (9.8-13.1)
--- NOTE | 2017-05-16 23:50 | US ---
EXAM: US , Transvaginal EXAM DATE/TIME: 05/16/2017 10:37 PM CLINICAL HISTORY: 26 years old, female; Signs and symptoms; Lmp or gestational age (in weeks): 03/14/17; Antepartum complications; Hemorrhage; Additional info: Vag bleeding TECHNIQUE: Real-time transvaginal obstetrical ultrasound of the maternal pelvis and a first trimester with image documentation. Transvaginal imaging was used for better evaluation of the fetus and adnexa. COMPARISON: US - OB TRANSVAGINAL 2017-05-11 23:03 FINDINGS: The uterus measures approximately 8 x 4 x 6 cm. The endometrium measures 12 mm. The cervix measures 4 cm. The live intrauterine gestational seen on prior is no longer present. There are no remnants of the gestational sac identified. The maternal right ovary is normal. The maternal left ovary is normal. Color flow and doppler vascular waveforms were demonstrated to both ovaries. There is no significant free fluid. IMPRESSION: Previously seen live intrauterine is no longer identified. Findings consistent with AB.
== END 2017-05-17 00:10 | disposition home or self-care (01) ==
LOC: H.ER 20:26
DX: O20.9 Hemorrhage in early pregnancy, unspecified (principal); Z3A.11 11 weeks gestation of pregnancy

== ENCOUNTER 2017-08-10 11:37 | Emergency (ER) | payer MEDICAID ==
[2017-08-10 11:50] VITALS: BP 122/78; PULSE 77; TEMP 97; O2SAT 99
[2017-08-10 11:51] VITALS: BMI 25.2
--- NOTE | 2017-08-10 12:36 | ED PDOC ---
HPI: Abdomen Time Seen by Provider: 08/10/17 11:57 Chief Complaint (Nursing): Abdominal Pain Chief Complaint (Provider): Abdominal/pelvic cramping History Per: Patient History/Exam Limitations: no limitations Onset/Duration Of Symptoms: Days Outside of [place] travel?: No Current Symptoms Are (Timing): Still Present Location Of Pain/Discomfort: Suprapubic Quality Of Discomfort: Cramping Associated Symptoms: denies: Fever, Chills, Chest Pain, Urinary Symptoms Additional History Per: Patient Additional Complaint(s): 26yo female, recent history of miscarriage in April 2017, presents to ED for evaluation of a cramping abdominal pain to her suprapubic region for the past 3 days. She also reports mild back pain. Patient states she did have unprotected sexual intercourse and took a home test on 07/03/17 which was positive. She Denies any dysuria, hematuira, vaginal bleeding, chest pain, shortness of breath, nausea, vomiting, diarrhea, headache, or dizziness. She has no other medical complaints. PMD: [facility] Abnormal Vaginal Bleeding: No Past Medical History Reviewed: Historical Data, Nursing Documentation, Vital Signs Vital Signs: Last Vital Signs Temp 97 F L 08/10/17 11:49 Pulse 77 08/10/17 11:49 Resp BP 122/78 08/10/17 11:49 Pulse Ox 99 08/10/17 14:55 - Medical History PMH: No Chronic Diseases - Surgical History Surgical History: Appendectomy (1992) - Family History Family History: States: No Known Family Hx, Unknown Family Hx, Diabetes, Hypertension - Home Medications Home Medications: Ambulatory Orders Medication Instructions Recorded Albuterol HFA [Ventolin HFA 90 2 puff IH Q4 PRN #1 unit 01/27/16 mcg/actuation (8 g)] Guaifenesin/Pseudoephedrne HCl 1 each PO BID #10 tab.er.12h 01/27/16 [Guaifenesin-Pse ER 600-60 mg] Promethazine HCl/Codeine 5 ml PO BID #50 ml 01/27/16 [Prometh-Codein 6.25-10 mg/5 ml] Amoxicillin/Clavulanate [Augmentin 1 tab PO BID #14 tab 02/06/16 875 MG-125 MG] Ciprofloxacin/Hydrocortisone 3 drop TOP BID #10 ml 02/06/16 [Cipro Hc Otic Suspension] Promethazine HCl/Codeine 10 ml PO Q6 PRN #6 oz 02/06/16 [Prometh-Codein 6.25-10 mg/5 ml] Ibuprofen [Motrin] 600 mg PO Q8 #20 tab 07/20/16 Ranitidine HCl [Zantac] 1 tab PO BID #40 tablet 08/06/16 Amoxicillin/Clavulanate [Augmentin 1 tab PO BID #20 tab 09/03/16 500 MG-125 MG] Fluticasone Propionate [Flonase] 2 spr NS DAILY PRN #1 bottle 09/03/16 Methylprednisolone [Medrol Dose 4 mg PO DAILY #21 mg 09/03/16 Pack (21 tabs)] Promethazine DM [Phenergan DM 5 - 10 ml PO Q8 PRN #120 ml 09/03/16 Syrup] Cephalexin [cephalexin] 500 mg PO BID #20 cap 01/11/17 traMADol [Ultram] 50 mg PO Q4 #15 tab 01/11/17 Oseltamivir [Tamiflu] 75 mg PO BID #10 cap 03/14/17 - Allergies Allergies/Adverse Reactions: Allergies Allergy/AdvReac Type Severity Reaction Status Date / Time No Known Allergies Allergy Verified 08/10/17 12:03 Review of Systems ROS Statement: Except As Marked, All Systems Reviewed And Found Negative Constitutional: Negative for: Fever, Chills Cardiovascular: Negative for: Chest Pain Respiratory: Negative for: Shortness of Breath Gastrointestinal: Positive for: Abdominal Pain. Negative for: Nausea, Vomiting , Diarrhea Genitourinary Female: Negative for: Dysuria, Hematuria, Vaginal Bleeding Musculoskeletal: Positive for: Back Pain Neurological: Negative for: Headache, Dizziness Physical Exam - Reviewed Nursing Documentation Reviewed: Yes Vital Signs Reviewed: Yes - Physical Exam Appears: Positive for: Non-toxic, No Acute Distress Head Exam: Positive for: ATRAUMATIC, NORMAL INSPECTION, NORMOCEPHALIC Skin: Positive for: Normal Color Eye Exam: Positive for: Normal appearance Neck: Positive for: Supple Cardiovascular/Chest: Positive for: Regular Rate, Rhythm Respiratory: Positive for: Normal Breath Sounds. Negative for: Wheezing Pulses-Radial (L): 2+ Pulses-Radial (R): 2+ Gastrointestinal/Abdominal: Positive for: Soft, Tenderness (across lower pelvic mild) Back: Positive for: Normal Inspection. Negative for: L CVA Tenderness, R CVA Tenderness Extremity: Positive for: Normal ROM. Negative for: Pedal Edema, Deformity Neurologic/Psych: Positive for: Alert, Oriented. Negative for: Motor/Sensory Deficits - Laboratory Results Result Diagrams: 08/10/17 13:15 08/10/17 13:15 - ECG O2 Sat by Pulse Oximetry: 99 (RA) Pulse Ox Interpretation: Normal - CT Scan/US US Other Rad Studies (CT/US): Read By Radiologist Other Rad Interpretation: IUP - Progress ED Course And Treament: 1500: Stable. AAOx3. Pain free. Tolerated PO. Fu with pcp. Medical Decision Making Medical Decision Making: Impression: Abdominal pain Plan: -- Labs -- Urinalysis -- UPreg -- US OB Transvaginal Time: 1221 UPreg positive. Time: 1421 Beta-HCG quantitative: 50319.00 per lab results. Time: 1440 US Transvaginal IMPRESSION: A single viable intrauterine gestation is identified with average ultrasonic age of 11 weeks 3 days by CRL mean demonstrating 173 beats per minute. A small subchorionic hemorrhage is suggested anterior inferiorly. No ultrasound evidence of ectopic gestation at this time. Clinical correlation and sonographic follow-up are advised. Time: 1500 Patient informed of US and laboratory findings. Instructed to follow up with PMD in 2-3 days and if symptoms worsen or new symptoms arise, to return to the ED without fail. Stable for discharge home. Scribe Attestation: Documented by Jacinda Vigil acting as a scribe for Jorge Hernandez MD Provider Attestation: All medical record entries made by the Scribe were at my direction and personally dictated by me. I have reviewed the chart and agree that the record accurately reflects my personal performance of the history, physical exam, medical decision making, and the department course for this patient. I have also personally directed, reviewed, and agree with the discharge instructions and disposition. Disposition - Clinical Impression Clinical Impression: Threatened - Patient ED Disposition Is Patient to be Admitted: No Counseled Patient/Family Regarding: Studies Performed, Diagnosis, Need For Followup - Disposition [facility] - [facility]17 Disposition: Routine/Home Disposition Time: 15:01 Condition: STABLE Additional Instructions: Return if not better in 3 days. Instructions: Threatened Miscarriage
[2017-08-10 13:27] LABS: BASO # 0.1 K/uL (0.0-0.2); BASO % 1.1 % (0.0-2.0); EOS # 0.1 K/uL (0.0-0.7); EOS % 0.8 % (0.0-4.0); HEMOGLOBIN 15.1 g/dL (12.0-16.0); LYMPH # 1.7 K/uL (1.0-4.3); LYMPH % 18.7 % (20.0-40.0); MEAN CELL VOLUME 92.7 fl (81.0-99.0); MEAN CORPUSCULAR HEMOGLOBIN 31.5 pg (27.0-31.0); MEAN PLATELET VOLUME 10.3 fl (7.2-11.7); MONO # 0.7 K/uL (0.0-0.8); MONO % 7.8 % (0.0-10.0); NEUT # 6.4 K/uL (1.8-7.0); NEUT % 71.6 % (50.0-75.0); NRBC % 0.1 % (0.0-0.0); RBC 4.78 Mil/uL (3.80-5.20); RED CELL DISTRIBUTION WIDTH 13.3 % (11.5-14.5)
[2017-08-10 13:45] LABS: ALB/GLOB RATIO 1.2 (1.0-2.1); ALBUMIN 3.5 g/dL (3.5-5.0); ALT/SGPT 35 U/L (9-52); AST/SGOT 18 U/L (14-36); BLOOD UREA NITROGEN 7 mg/dl (7-17); CALCIUM 8.9 mg/dL (8.4-10.2); GFR AFRICAN-AMERICAN > 60; GFR NON-AFRICAN AMERICAN > 60
--- NOTE | 2017-08-10 14:44 | US ---
PROCEDURE: OB Pelvic Ultrasound HISTORY: preg and pain LMP: 05/16/2017 which is axillae the time of the patient's most recent prior transvaginal pelvic ultrasound at which time spontaneous was 1st documented. There is likely not been a menstrual period since 03/14/2017 and therefore an estimate on this gestation by LMP dates is relatively ineffectual. Estimated gestational ages potentially 12 weeks 2 days. COMPARISON: Transvaginal obstetric ultrasound 05/16/2017. TECHNIQUE: Transvaginal pelvic ultrasound was performed with longitudinal and transverse images submitted for interpretation. FINDINGS: UTERUS: A gestational sac is identified within intracavity with a pole and yolk sac identified. The amniotic membrane is questionably seen in the periphery. Mean sac diameter measures 4.7 cm correspond to 10 weeks 3 day estimated gestational age with pole 4.7 cm corresponding to average ultrasonic age of 11 weeks 3 days. cardiac tears recorded 173 beats per minute. The decidual reaction is remarkable for inhomogeneous soft tissue with hypoechoic fluid suspicious for subchorionic hemorrhage at the lower uterine segment anteriorly. No myometrial mass grossly evident exclusive of this region. Date of delivery (Ultrasound estimated) : 03/01/2018. Uterus measures 13.1 x 5.2 x 8.1 cm. Delete No myometrial lesion appreciated grossly. CERVIX: Measures 3.5 cm cm. Long and closed. No cervical abnormality seen. RIGHT OVARY: Measures 3.2 x 1.8 x 2.1 cm. No mass lesion. Normal flow. 1.8 cm corpus luteum cyst noted. LEFT OVARY: Measures 2.9 x 2.1 x 2.1 cm. No solid mass. Normal flow. FREE FLUID: None. OTHER FINDINGS: None. IMPRESSION: A single viable intrauterine gestation is identified with average ultrasonic age of 11 weeks 3 days by CRL mean demonstrating 173 beats per minute. A small subchorionic hemorrhage is suggested anterior inferiorly. No ultrasound evidence of ectopic gestation at this time. Clinical correlation and sonographic follow-up are advised.
== END 2017-08-10 15:20 | disposition home or self-care (01) ==
LOC: H.ER 11:37
DX: O20.0 Threatened abortion (principal)

== ENCOUNTER 2018-02-06 10:33 | Emergency (ER) | payer MEDICAID ==
[2018-02-06 11:07] VITALS: BMI 30.5
--- NOTE | 2018-02-06 11:15 | OBHP ---
Datetime: 02/06/2018 11:08 IP Adm Impression: , intrauterine ; No Active Labor; Intact Membranes IP Admit Plan: Discharge home Admit Comment, IP Provider: 27yo IUP at 35w6d c/o lower abd pain since Monday. Became reg lar last . She called in and was told to come in. No SROM. No VB. +FM PNC: Dr Christianson : elevated glucola 213mg/dl - no accucchecks POBGNH: x 2; spont AB PSH: appendicitis PMH: denies NKA PSoH; deneis smoking ETOH drugs A: IUP 35w not in labor eleaved glcuola PLAN: check accucheck 2h postprandial - monitor FHR...plan to discharge after speaking with PMD Abdomen - PN: Normal Back - PN: Normal Thyroid - PN: Normal Neurologic - PN: Normal HEENT - PN: Normal General - PN: Normal Presentation-Admit: Vertex FHR - Baseline A Provider: 135 Membranes, Provider: Intact Pool Provider: Negative IP Chief Complaint: Uterine contractions NICHD Variability Prov Fetus A: Moderate 6-25bpm NICHD Accel Fetus A IP Provider: 15X15 FHR Category Provider Fetus A: Category I NICHD Decel Fetus A IP Provider: None Dilatation, Provider: 0 Effacement, Provider: 0 Station, Provider: high
[2018-02-07 12:06] VITALS: BP 104/74; PULSE 94; RESP 16; TEMP 98.7; O2SAT 98
== END 2018-02-06 16:28 | disposition home or self-care (01) ==
LOC: H.EROB2 10:33 → H.L&D 11:31 → H.EROB2 16:28
DX: O26.93 Pregnancy related conditions, unspecified, third trimester (principal); R10.2 Pelvic and perineal pain; R73.09 Other abnormal glucose; Z3A.35 35 weeks gestation of pregnancy

== ENCOUNTER 2018-02-07 17:43 | Emergency (ER) | payer MEDICAID ==
[2018-02-06 11:07] VITALS: BMI 30.5
--- NOTE | 2018-02-07 22:37 | OBHP ---
Datetime: 02/07/2018 19:58 IP Adm Impression: , intrauterine IP Chief Complaint Other: Abdominal pain IP Admit Plan: Observation/Evaluation; Discharge home Admit Comment, IP Provider: HPI: 27 yo who presents at 36.6 with complaints of lower abdomin al cramping. She was seen in triage yesterday for the same complaint and her cervix was minimally dil ated so she was discharged. She saw her regular OBGYN today who checked her and her exam was unchange d, but he told her to come to triage if her pain got any worse. She describes it as a constant period cramping. Denies any LOF or vaginal bleeding, endorsing good movement. ROS: as above, otherwise negative History 2 prior births, first at approximately 30 weeks d/t PPROM, second delivery w as spontaneous Problems History perterm - has been on Riggins this , last injection was last week Elevated 1 hr GTT at 213 - no apparent follow-up/treatment for GDM. She was given a prescription f or an accucheck yesterday PMH Denies PSH Appendectomy Family History Not significant Social History Denies alcohol, tobacco, drug use Medications Riggins PNV Allergies NKDA OBJECTIVE See exam section labs unavailable Assessment/Plan: 27 yo at 36.6 with a history of labor x2 presents with lower pelv ic pain with no evidence of labor. Her cervical exam showed a long and closed cervix and ther e were minimal contractions on tocometry. At this time her pain seems more likely related to Shaista- Sainz or pelvic pressure/discomfort from the . Return labor precautions discussed. The patie nt was comfortable with the discharge plan and all questions were answered. Elyssa Leahy MD OB Fellow Patient was seen with the resident I agree with the note Abdomen - PN: Normal Lungs - PN: Normal Heart - PN: Normal HEENT - PN: Normal General - PN: Normal IP Fetus A Comments: Reactive NST FHR - Baseline A Provider: 150 Contraction Comments Provider: None Gestation - Est Wks by US: 36.6 Vital Signs Provider: Reviewed; Within Normal Limits NICHD Variability Prov Fetus A: Moderate 6-25bpm NICHD Accel Fetus A IP Provider: 15X15 NICHD Decel Fetus A IP Provider: Variable Dilatation, Provider: 0 Effacement, Provider: 10 Station, Provider: -3 Datetime: 02/06/2018 11:08 EGA AdmitDate IP: 36.5
[2018-02-08 11:43] VITALS: BP 105/71; PULSE 89; RESP 18; TEMP 98.2; O2SAT 99
== END 2018-02-07 20:40 | disposition home or self-care (01) ==
LOC: H.EROB2 17:43
DX: O26.93 Pregnancy related conditions, unspecified, third trimester (principal); R10.2 Pelvic and perineal pain; Z3A.36 36 weeks gestation of pregnancy

== ENCOUNTER 2018-02-11 13:18 | Emergency (ER) | payer MEDICAID ==
--- NOTE | 2018-02-11 16:09 | OBHP ---
Datetime: 02/11/2018 14:15 IP Adm Impression: Term, intrauterine ; No Active Labor IP Admit Plan: Observation/Evaluation; Discharge home Admit Comment, IP Provider: 27yo @37.3wks presents here today for evaluation of pelvic pressure . She denies any Vaginal bleeding or leakage of fluids.She also denies urinary symptoms. She had been here within the last week for similar complaints. She reports that the pressure has i ncreased in intensity fro the last time she was here. care with Dr Newsome. Next visit on Monday. O afebrile, not in distress Heart: RRR Chest: CTA B/L Abd: Soft,NT, BS- present TOCO: Occasional withsome cts a 8min SVE: /-3 Assessment: IUP at 37+weeks Irregular contractions NST- Reactive Plan: Observe Reexamine cervix in 1 hour. 15:30 Patient ws reexamined and there was no change in cervical dilatation. Plan: D/c Home F/U with Dr Rodríguez on Monday. labor instructions given. Extremities - PN: Normal Abdomen - PN: Normal Back - PN: Normal Lungs - PN: Normal Heart - PN: Normal Neurologic - PN: Normal General - PN: Normal Presentation-Admit: Vertex FHR - Baseline A Provider: 130 Membranes, Provider: Intact Gestation - Est Wks by US: 37.3 EGA AdmitDate IP: 37.3 IP Chief Complaint: Maternal discomfort NICHD Variability Prov Fetus A: Moderate 6-25bpm NICHD Accel Fetus A IP Provider: 15X15 FHR Category Provider Fetus A: Category I NICHD Decel Fetus A IP Provider: None Dilatation, Provider: 2 Effacement, Provider: 50 Station, Provider: -3 Genitourinary Exam: Normal
[2018-02-11 21:29] VITALS: BP 114/78; PULSE 80; RESP 16; TEMP 97.9; O2SAT 98
== END 2018-02-11 15:33 | disposition home or self-care (01) ==
LOC: H.EROB2 13:18 → H.L&D 13:41 → H.EROB2 15:33
DX: O26.93 Pregnancy related conditions, unspecified, third trimester (principal); R10.2 Pelvic and perineal pain; Z3A.37 37 weeks gestation of pregnancy; O47.1 False labor at or after 37 completed weeks of gestation

== ENCOUNTER 2018-03-03 07:22 | Inpatient (IN) | payer MEDICAID ==
[2018-03-03 09:51] VITALS: BMI 32.2
[2018-03-03] MEDS ORDERED: Lactated Ringer's 1,000 ML IV ONE (10:03)
[2018-03-03] MEDS ORDERED: Oxytocin 30 UNIT 30 UNITS/500 ML BAG IV ONE ×2 (10:07→14:57)
[2018-03-03] MEDS ORDERED: OXYTOCIN/0.9 % NS 20 UNIT/1,000 ML BAG IV SCH (10:15)
[2018-03-03] MEDS ORDERED: Fentanyl/Bupivacaine HCl 250 ML EPI ONE (10:18)
[2018-03-03 11:16] LABS: BASO % 0.3 % (0.0-2.0); EOS % 0.4 % (0.0-4.0); HEMOGLOBIN 13.9 g/dL (12.0-16.0); LYMPH # 1.2 K/uL (1.0-4.3); LYMPH % 14.4 % (20.0-40.0); MEAN CELL VOLUME 90.9 fl (81.0-99.0); MEAN CORPUSCULAR HEMOGLOBIN 29.9 pg (27.0-31.0); MEAN CORPUSCULAR HGB CONC 32.9 g/dL (33.0-37.0); MONO # 0.6 K/uL (0.0-0.8); NEUT # 6.5 K/uL (1.8-7.0); NEUT % 77.9 % (50.0-75.0); NRBC % 0.1 % (0.0-0.0); RBC 4.65 Mil/uL (3.80-5.20); RED CELL DISTRIBUTION WIDTH 14.5 % (11.5-14.5); WHITE BLOOD COUNT 8.4 K/uL (4.8-10.8)
[2018-03-03] MEDS: Lactated Ringer's 1,000 ML IV SCH ×2 (12:00→18:26)
[2018-03-03] MEDS ORDERED: Lidocaine 1% Inj (20ml) ONE (12:02)
--- NOTE | 2018-03-03 12:03 | OBADHP ---
Datetime: 03/03/2018 11:48 Admit Comment, IP Provider: iup at term history of ptl treated with alessio up to 36 weeks without co mplication she is now in active labor and is admitted for delivery Pelvic Type - PN: Adequate Extremities - PN: Normal Abdomen - PN: Normal Back - PN: Normal Breast - PN: Normal Lungs - PN: Normal Heart - PN: Normal Thyroid - PN: Normal Neurologic - PN: Normal HEENT - PN: Normal General - PN: Normal Presentation-Admit: Vertex FHR - Baseline A Provider: 130 Membranes, Provider: Intact Contraction Comments Provider: irregular Gestation - Est Wks by US: 40+ Vital Signs Provider: Reviewed; Within Normal Limits IP Chief Complaint: Uterine contractions NICHD Variability Prov Fetus A: Moderate 6-25bpm NICHD Accel Fetus A IP Provider: 10X10 FHR Category Provider Fetus A: Category I NICHD Decel Fetus A IP Provider: None Dilatation, Provider: 4-5cm Effacement, Provider: 80% Station, Provider: -2 Genitourinary Exam: Normal DTRs - PN: Normal EGA AdmitDate IP: 40.2 IP Adm Impression: Term, intrauterine ; Active labor; Intact Membranes IP Admit Plan: Admit to unit; Initiate labor protocol Datetime: 02/07/2018 19:58 IP Chief Complaint Other: Abdominal pain IP Fetus A Comments: Reactive NST Datetime: 02/06/2018 11:08 Pool Provider: Negative
[2018-03-03] MEDS ORDERED: Bupivacaine HCl 0.5% PF (30 ml) Inj ONE (19:08)
[2018-03-03] MEDS ORDERED: Bupivacaine HCl 0.25% PF (30 ml) Inj ONE (19:15)
--- NOTE | 2018-03-03 22:29 | OBDS ---
MATERNAL INFORMATION Estimated Blood Loss (ml): 250mi Maternal Complications: None Provider Comments: delivery of live baby boy 9/9 meconium flluid cord with 3 vessels periureth eral tear with repair LABOR SUMMARY EDC: 03/01/2018 00:00 No. Babies in Womb: 1 LABOR INFORMATION Reason for Induction: Not Applicable Onset of Labor: 03/03/2018 06:00 Group B Beta Strep: Negative Steroids Given: None Reason Steroids Not Administered: Not Applicable MEMBRANES Membranes Rupture Method: Artificial Rupture of Membranes: 03/03/2018 12:17 Amniotic Fluid Color: Light Meconium Amniotic Fluid Amount: Moderate Amniotic Fluid Odor: Normal VAGINAL DELIVERY Episiotomy: None Laceration Extension: N/A Laceration Type: Periurethral Laceration Repair Note: repair with 2-0 chromic Sharps Count Correct: Yes Count Comment: correct
[2018-03-03] MEDS ORDERED: Acetaminophen-Codeine 300/30 mg Tab PO PRN (22:31)
[2018-03-03] MEDS ORDERED: Oxycodone/Acetaminophen 5/325 mg Tab PO PRN ×2 (22:31)
[2018-03-03] MEDS ORDERED: OXYTOCIN/0.9 % NS 20 UNIT/1,000 ML BAG IV ONE (22:31)
[2018-03-03] MEDS ORDERED: Benzocaine/Menthol SPRAY TOP PRN (22:31)
[2018-03-04] MEDS ORDERED: Acetaminophen-Codeine 300/30 mg Tab PO PRN (00:38)
[2018-03-04] MEDS ORDERED: Benzocaine/Menthol SPRAY TOP PRN (00:38)
[2018-03-04] MEDS ORDERED: Oxycodone/Acetaminophen 5/325 mg Tab PO PRN ×2 (00:38)
[2018-03-04 09:30] LABS: BASO % 0.2 % (0.0-2.0); EOS % 0.2 % (0.0-4.0); HEMOGLOBIN 12.9 g/dL (12.0-16.0); LYMPH # 1.1 K/uL (1.0-4.3); LYMPH % 8.4 % (20.0-40.0); MEAN CELL VOLUME 91.5 fl (81.0-99.0); MEAN CORPUSCULAR HEMOGLOBIN 29.5 pg (27.0-31.0); MEAN CORPUSCULAR HGB CONC 32.3 g/dL (33.0-37.0); MEAN PLATELET VOLUME 10.3 fl (7.2-11.7); MONO % 7.6 % (0.0-10.0); NEUT # 11.4 K/uL (1.8-7.0); NEUT % 83.6 % (50.0-75.0); PLATELET COUNT 180 K/uL (130-400); RBC 4.38 Mil/uL (3.80-5.20); RED CELL DISTRIBUTION WIDTH 14.7 % (11.5-14.5); WHITE BLOOD COUNT 13.6 K/uL (4.8-10.8)
[2018-03-04 10:31] LABS: BASOPHIL 1 % (0-2); LYMPHOCYTE 11 % (20-50); MONOCYTE 6 % (0-10); NEUTROPHIL 82 % (42-75); PLATELET ESTIMATE NORMAL (NORMAL); TOTAL CELLS COUNTED 100
[2018-03-04 10:32] LABS: OVALOCYTES SLIGHT
[2018-03-04 10:33] LABS: ANISOCYTOSIS SLIGHT; LARGE PLATELETS PRESENT
--- NOTE | 2018-03-04 12:26 | OBPPN ---
Datetime: 03/04/2018 12:23 PP Pain Prov: Within normal limits PP Pain Prov comment: No SOB, chest or leg pains PP Nausea Prov: Denies PP Flatus Prov: Yes PP Breasts Prov: Normal PP Lungs Prov: Normal PP Abdomen/Uterus Prov: Abnormal PP Lochia Prov: Normal PP CVA Tenderness Prov: Normal PP Extremities Prov: Normal PP C/S Incision Prov: Not Applicable PP Progress Prov: Normal PP Comments Phys Exam Prov: breast not engorged; Abd soft ND, fundus firm below the umb, NT Ext no calf tenderness PP Impression Prov: Normal progression PP Plan Prov: Continue present management PP Progress Note Prov: OOB and ambulation Continue PP care IP PP Procedures: None Vital Signs Provider PP: Reviewed
--- NOTE | 2018-03-05 12:18 | OBDCSUM ---
Datetime: 03/05/2018 12:00 Discharged to, Provider: Home Follow up at, Provider: Dr. Restrepo Disch Instr Activity: Normal activity; May be up to bathroom; May be up for meals; May Shower Disch Instr Diet: Regular Discharge Instructions, Provider: Routine instructions given Discharge Diagnosis, Provider: Term Delivered Discharge Time: 03/05/2018 12:14 Follow up in weeks, Provider: in 4 to 6 weeks Disch Referrals: None Disch Activity Restrictions: No exercising; No lifting; No driving; Minimize walking; Minimize stair -climbing; No sexual activity; Nothing in vagina - [place], tampons, douche Discharge Comment, Provider: elsa jean today rto 5-6 weeks call office if any problems Contraception after Delivery: Undecided Datetime: 02/11/2018 15:30 Disch Activity Restrictions: No lifting; No sexual activity; Nothing in vagina - [place], tampon s, douche
[2018-03-06 01:17] VITALS: BP 119/69; PULSE 100; RESP 20; TEMP 98.3; O2SAT 99
== END 2018-03-05 15:30 | disposition home or self-care (01) | DRG 373 ==
LOC: H.EROB2 07:22 → H.L&D 10:03 → H.OB/GYN 03-04 00:10
PROVIDERS: ADMIT Specialist; ATTEND Specialist
PROC: 10E0XZZ Delivery of Products of Conception, External Approach (ICD-10-PCS; principal; 2018-03-03)
PROC: 0UQMXZZ Repair Vulva, External Approach (ICD-10-PCS; 2018-03-03)
PROC: 10907ZC Drainage of Amniotic Fluid, Therapeutic from Products of Conception, Via Natural or Artificial Opening (ICD-10-PCS; 2018-03-03)
PROC: 4A1HXCZ Monitoring of Products of Conception, Cardiac Rate, External Approach (ICD-10-PCS; 2018-03-03)
DX: O77.0 Labor and delivery complicated by meconium in amniotic fluid (principal); O71.82 Other specified trauma to perineum and vulva; Z3A.40 40 weeks gestation of pregnancy; Z37.0 Single live birth

== ENCOUNTER 2018-06-08 13:34 | Emergency (ER) | payer MEDICAID ==
[2018-06-08 13:34] VITALS: BMI 32.2
--- NOTE | 2018-06-08 16:21 | ED PDOC ---
HPI: Influenza Time Seen by Provider: 06/08/18 14:41 Chief Complaint: Cough, Cold, Congestion Chief Complaint (Provider): Cough, Cold, Congestion History Per: Patient Exam Limitations: no limitations Symptoms include: cough, chest pain Additional complaint(s):: Alanis Rondon is a 27 year old female with no significant past medical history, who presents to the emergency department complaining of cough with productive green sputum and sharp chest pain, onset x1 week. Patient states that symptoms have gotten worse since onset and at night. She states she has had bronchitis in the past that has caused ear infections. Patient reports to feel right ear "fullness" over the past x2-3 days. She further reports of mild sore throat after coughing and has had a couple episodes of posttussive vomiting. Patient denies fever, chills, diarrhea, body aches or nasal congestion. PMD: No provider Past Medical History Reviewed: Historical Data, Nursing Documentation, Vital Signs Vital Signs: Last Vital Signs Temp 98.5 F 06/08/18 14:05 Pulse 75 06/08/18 14:05 Resp 20 06/08/18 14:05 BP 125/75 06/08/18 14:05 Pulse Ox 97 06/08/18 14:05 - Medical History PMH: Bronchitis - Surgical History Surgical History: Appendectomy (1992) - Family History Family History: States: Unknown Family Hx, Diabetes, Hypertension - Home Medications Home Medications: Ambulatory Orders Medication Instructions Recorded Albuterol HFA [Ventolin HFA 90 2 puff IH Q4 PRN #1 unit 01/27/16 mcg/actuation (8 g)] Guaifenesin/Pseudoephedrne HCl 1 each PO BID #10 tab.er.12h 01/27/16 [Guaifenesin-Pse ER 600-60 mg] Promethazine HCl/Codeine 5 ml PO BID #50 ml 01/27/16 [Prometh-Codein 6.25-10 mg/5 ml] Amoxicillin/Clavulanate [Augmentin 1 tab PO BID #14 tab 02/06/16 875 MG-125 MG] Ciprofloxacin/Hydrocortisone 3 drop TOP BID #10 ml 02/06/16 [Cipro Hc Otic Suspension] Promethazine HCl/Codeine 10 ml PO Q6 PRN #6 oz 02/06/16 [Prometh-Codein 6.25-10 mg/5 ml] Ibuprofen [Motrin] 600 mg PO Q8 #20 tab 07/20/16 Ranitidine HCl [Zantac] 1 tab PO BID #40 tablet 08/06/16 Amoxicillin/Clavulanate [Augmentin 1 tab PO BID #20 tab 09/03/16 500 MG-125 MG] Fluticasone Propionate [Flonase] 2 spr NS DAILY PRN #1 bottle 09/03/16 Methylprednisolone [Medrol Dose 4 mg PO DAILY #21 mg 09/03/16 Pack (21 tabs)] Promethazine DM [Phenergan DM 5 - 10 ml PO Q8 PRN #120 ml 09/03/16 Syrup] Cephalexin [cephalexin] 500 mg PO BID #20 cap 01/11/17 traMADol [Ultram] 50 mg PO Q4 #15 tab 01/11/17 Oseltamivir Cap [Tamiflu] 75 mg PO BID #10 cap 03/14/17 Azithromycin [Z-Idckson] 250 mg PO DAILY #6 tab 06/08/18 Benzonatate [Tessalon Perles] 100 mg PO BID PRN 7 Days sgl 06/08/18 Neomycin/Polymyxin B/Hydrocort 4 drop OT QID 7 Days drops.susp 06/08/18 [Rwkuajsd-Gnaqlypzo-Os Ear Susp] - Allergies Allergies/Adverse Reactions: Allergies Allergy/AdvReac Type Severity Reaction Status Date / Time No Known Allergies Allergy Verified 06/08/18 14:06 Review of Systems ROS Statement: Except As Marked, All Systems Reviewed And Found Negative Constitutional: Negative for: Fever, Chills, Other (bodyaches) ENT: Positive for: Ear Pain. Negative for: Nose Congestion Cardiovascular: Positive for: Chest Pain Respiratory: Positive for: Cough Gastrointestinal: Positive for: Nausea, Vomiting. Negative for: Diarrhea Physical Exam - Reviewed Nursing Documentation Reviewed: Yes Vital Signs Reviewed: Yes - Physical Exam Appears: Positive for: Uncomfortable Head Exam: Positive for: ATRAUMATIC, NORMOCEPHALIC Skin: Positive for: Normal Color, Warm, Dry Eye Exam: Positive for: Normal appearance, EOMI, PERRL ENT: Positive for: TM Is/Are (right ear canal: erythema (-) bulging/ Left ear: normal), Tonsillar Exudate Cardiovascular/Chest: Positive for: Regular Rate, Rhythm. Negative for: Murmur Respiratory: Positive for: Normal Breath Sounds. Negative for: Respiratory Distress Medical Decision Making Medical Decision Making: Time: 1453 Plan: --ED urine --Chest xray 2 views --Throat culture --Rapid strep Scribe Attestation: Documented by Stewart Orantes, acting as a scribe for Marsha Sheldon PA-C. Provider Scribe Attestation: All medical record entries made by the Scribe were at my direction and personally dictated by me. I have reviewed the chart and agree that the record accurately reflects my personal performance of the history, physical exam, medical decision making, and the department course for this patient. I have also personally directed, reviewed, and agree with the discharge instructions and disposition. - ECG O2 Sat by Pulse Oximetry: 97 (RA) Pulse Ox Interpretation: Normal Disposition - Clinical Impression Clinical Impression: Bronchitis, Otitis externa - Disposition Referrals: [facility] [Outside] Disposition Time: 17:20 Condition: STABLE Additional Instructions: Complete Z-dickson as instructed. Take Tessalon Perles for cough and use Tylenol or Ibuprofen for chest pain associated with cough. Complete course of antibiotic ear drops for outer ear infection. F/u with your primary care doctor if symptoms persist or return to ER if you have worsening SOB. Prescriptions: Azithromycin [Z-Dickson] 250 mg PO DAILY #6 tab Benzonatate [Tessalon Perles] 100 mg PO BID PRN 7 Days sgl PRN Reason: Cough Neomycin/Polymyxin B/Hydrocort [Zfxdkhjz-Dtmympwhc-Ut Ear Susp] 4 drop OT QID 7 Days drops.susp Instructions: Acute Bronchitis, Adult (DC), Outer Ear Infection (DC) Forms: [employer] (Azeri), [facility] ED School/Work Excuse Print Language: ESTONIAN
--- NOTE | 2018-06-08 16:49 | RAD ---
Date of service: 06/08/2018 HISTORY: shortness of breath, cough COMPARISON: 03/14/2017 TECHNIQUE: Chest PA and lateral FINDINGS: LUNGS: No active pulmonary disease. PLEURA: No significant pleural effusion identified. No pneumothorax apparent. CARDIOVASCULAR: No aortic atherosclerotic calcification present. Normal cardiac size. No pulmonary vascular congestion. OSSEOUS STRUCTURES: No significant abnormalities. VISUALIZED UPPER ABDOMEN: Normal. OTHER FINDINGS: None. IMPRESSION: No active disease.
[2018-06-08 17:17] VITALS: BP 123/69; PULSE 71; RESP 18; TEMP 98.2
[2018-06-08 17:32] VITALS: O2SAT 97
== END 2018-06-08 17:16 | disposition home or self-care (01) ==
LOC: H.ER 13:34
DX: J40 Bronchitis, not specified as acute or chronic (principal); H60.91 Unspecified otitis externa, right ear